=== PATIENT | female | born 1965 | race Caucasian/White ===

== ENCOUNTER 2024-02-28 20:56 | Emergency (ER) | payer OTHER ==
[~2024-02-28] VITALS: Ht 149.9 cm; Wt 64.0 kg
[2024-02-28 21:20] VITALS: O2SAT 99
[2024-02-29] MEDS: KETOROLAC 15MG/ML VIAL IM ONE (02:42)
[2024-02-29] MEDS: LIDOCAINE 5% PATCH TOP SCH (02:42)
[2024-02-29] MEDS ORDERED: LIDO700A15 TP (03:09)
[2024-02-29] MEDS ORDERED: NAPR-1176 MT (03:09)
[2024-02-29 03:50] VITALS: BP 144/74; PULSE 86; RESP 16; TEMP 36.72516; O2SAT 100
== END 2024-02-29 03:50 | disposition home or self-care (01) ==
LOC: ER 20:56
DX: S80.02XA Contusion of left knee, initial encounter (principal); M79.7 Fibromyalgia; Z79.1 Long term (current) use of non-steroidal anti-inflammatories (NSAID); Z88.8 Allergy status to other drugs, medicaments and biological substances; W01.0XXA Fall on same level from slipping, tripping and stumbling without subsequent striking against object, initial encounter; Y93.89 Activity, other specified; Y92.89 Other specified places as the place of occurrence of the external cause; Y99.8 Other external cause status
CPT/HCPCS: 99283; 96372; J1885